=== PATIENT | male | born 1985 | race Hispanic/Latino ===

== ENCOUNTER 2017-11-06 09:11 | Outpatient (CLI) | payer OTHER ==
[2017-11-06 10:10] LABS: Mean Corpuscular HGB CONC 35.6 g/dL (32.0-36.0); Mean Corpuscular Hemoglobin 32.6 pg (27.0-31.0); Mean Corpuscular Volume 91.7 fl (80.0-94.0); Mean Platelet Volume 8.2 fL (7.4-10.4); Platelet Count 172 thou/uL (130-400); RBC Distribution Width 11.5 % (11.5-14.5); Red Blood Cell (RBC) Count 5.23 mill/uL (4.70-6.10); White Blood Cell (WBC) Count 6.7 thou/uL (4.8-10.8)
[2017-11-06 10:12] LABS: Bilirubin Negative (Negative); Blood, Urine Negative (Negative); Clarity CLEAR (Clear); Glucose, Urine (Dipstick) Negative (Negative); Leukocyte Negative (Negative); Nitrite Negative (Negative); Protein, Urine (Dipstick) Negative (Neg-Trace); Urobilinogen 0.2 mg/dL (0.2-1.0); pH, Urine 5.5 (5.0-9.0)
[2017-11-06 10:13] LABS: Bacteria/HPF Rare-Few HPF (None Seen); Hyaline Casts/LPF 0-3 HYALINE CAST LPF (0-3 Hyaline); RBC/HPF 0-3 HPF (0-3); Squamous Epithelial 0-3 HPF (0-3); WBC/HPF 0-3 HPF (0-3)
[2017-11-06 10:16] LABS: PTT 31.8 SEC (22.9-36.1); Prothrombin Time 13.7 SEC (12.0-14.7)
[2017-11-06 10:32] LABS: Anion Gap 14 mmol/L (10-20); BUN (Urea Nitrogen) 19 mg/dL (8.9-20.6); Calc. Creatinine Clearance 0 mL/min (70-130); Calcium 9.5 mg/dL (7.8-10.44); Carbon Dioxide 26 mmol/L (22-29); Chloride 103 mmol/L (98-107); Estimated GFR-MDRD Greater than 90; Glucose 134 mg/dL (70-105); Potassium 4.6 mmol/L (3.5-5.1); Sodium 138 mmol/L (136-145)
== END 2017-11-06 09:12 | disposition home or self-care (01) ==
LOC: LABBT 09:11
PROVIDERS: ATTEND Urology
DX: Z01.818 Encounter for other preprocedural examination (principal); N47.7 Other inflammatory diseases of prepuce
CPT/HCPCS: 80048; 81001; 85027; 85610; 85730; 87086

== ENCOUNTER 2017-11-20 05:55 | Day surgery (SDC) | payer OTHER ==
[2017-11-06 09:31] VITALS: BMI 43.4
[2017-11-20] MEDS ORDERED: CEFAZOLIN/Water 2 GM/20 ML SYRINGE ONE (06:13)
[2017-11-20] MEDS ORDERED: Bupivacaine 0.25% HCL 30 ML VIAL ONE (06:53)
[2017-11-20] MEDS ORDERED: Bacitracin Zinc Ointment 30 gm TUBE ONE (06:53)
[2017-11-20] MEDS ORDERED: Fentanyl 100 MCG/2 ML VIAL ONE (07:01)
[2017-11-20] MEDS ORDERED: HYDROmorphone 0.5 MG/0.5 ML SYRINGE ONE (07:01)
[2017-11-20] MEDS ORDERED: Midazolam HCl 2 mg/2 ml Vial ONE (07:26)
--- NOTE | 2017-11-20 10:49 | OP ---
DATE OF PROCEDURE: 11/20/2017 SERVICE: Urology. SURGEON: Dr. Selvin Galeano PREOPERATIVE DIAGNOSIS: History of recurrent balanoposthitis. POSTOPERATIVE DIAGNOSIS: History of recurrent balanoposthitis. PROCEDURE PERFORMED: Circumcision. INDICATIONS FOR PROCEDURE: Mr. Estrada is a 32-year-old male with diabetes who initially had come to see me for issues regarding recurrent issues of infections of his foreskin and head of his p jluis. He desired a circumcision. Initially, his blood sugars were not well controlled, but after co ntrol of his blood sugars we scheduled him for circumcision with all risks and benefits discussed. Dorothy cunha does understand that it is important to keep his blood sugars controlled to avoid postoperative inf ection. He has agreed to proceed forward with surgery despite known risks. DESCRIPTION OF PROCEDURE: After identification of armband and verification of consent, the patient w as brought back to the operating room where he underwent general anesthesia with an LMA. He was then prepped and draped in the usual sterile fashion. After appropriate timeout, a dorsal penile nerve b lock was performed with 10 mL of 0.25% Marcaine plain. An incision was made behind the coronal sulcu s with a 15 blade down to Loomis's fascia. The foreskin was then reduced and a counter incision made o verlying the first incision. The intervening skin was then removed with a combination of sharp disse ction and Bovie electrocautery. Meticulous hemostasis was then performed on the underlying interveni ng tissues until there was absolutely no bleeding identified. The foreskin was then reapproximated u sing a 4-0 chromic in an interrupted fashion and redundant skin on the ventral aspect of the penis wa s excised off and the defect closed with a 4-0 chromic in a running fashion. Dermabond was applied o conchita the incision and then a Telfa compression dressing. The patient was then awakened and taken to P [facility]U for recovery in stable condition. COMPLICATIONS: None. ESTIMATED BLOOD LOSS: Minimal. RETAINED TUBES AND DRAINS: None. SPECIMENS: Foreskin. DISPOSITION: The patient will be discharged home and follow up with me next week for a postop check.
== END 2017-11-20 11:55 | disposition home or self-care (01) ==
LOC: SDC 05:55
PROVIDERS: ATTEND Urology
PROC: 0VTTXZZ Resection of Prepuce, External Approach (ICD-10-PCS; principal; 2017-11-20)
DX: N47.7 Other inflammatory diseases of prepuce (principal); E11.9 Type 2 diabetes mellitus without complications; E78.5 Hyperlipidemia, unspecified; F41.9 Anxiety disorder, unspecified; F32.9 Major depressive disorder, single episode, unspecified; E66.9 Obesity, unspecified; Z79.84 Long term (current) use of oral hypoglycemic drugs; Z90.49 Acquired absence of other specified parts of digestive tract; Z98.890 Other specified postprocedural states
CPT/HCPCS: 88304; J1170; J2250; J3010; S0020

== ENCOUNTER 2022-12-30 17:30 | Outpatient (CLI) | payer OTHER | END 2022-12-30 17:31 | disposition home or self-care (01) | LOC: SLEEPLAB 17:30 | PROVIDERS: ATTEND Family Medicine | DX: G47.33 Obstructive sleep apnea (adult) (pediatric) (principal) | CPT/HCPCS: 95800 ==